=== PATIENT | female | born 1975 | race Two or more races ===

== ENCOUNTER 2018-01-30 11:22 | Inpatient (IN) | payer BC ==
[2018-01-30] MEDS ORDERED: TUBERCULIN PPD 5 TU/0.1ML SYRINGE (IN PATIENT USE ONLY) ID ONE (12:10)
[2018-01-30] MEDS ORDERED: ELECTROLYTE-148 SOLN 1,000 ML IV SCH (12:10)
[2018-01-30 12:41] VITALS: BMI 30.4
[2018-01-30 13:10] LABS: BASO % 0.6 % (0-2.0); EOS % 0.6 % (0-4.5); HEMATOCRIT 31.6 % (32.4-45.2); HEMOGLOBIN 10.9 GM/dL (10.7-15.3); LYMPH % 36.1 % (8-40); MCH 30.5 pg (25.7-33.7); MCHC 34.5 g/dl (32.0-36.0); MEAN CELL VOLUME 88.5 fl (80-96); MONO % 8.2 % (3.8-10.2); NEUT % 54.5 % (42.8-82.8); PLATELET COUNT 311 K/MM3 (134-434); RBC 3.57 M/mm3 (3.60-5.2); RDW 14.9 % (11.6-15.6); WHITE BLOOD COUNT 3.2 K/mm3 (4.0-10.0)
[2018-01-30 13:30] LABS: INR 0.93 (0.83-1.09); PROTHROMBIN TIME (PATIENT) 10.5 SEC (9.7-13.0)
[2018-01-30 13:32] LABS: ACTIVATED PTT 27.1 SECONDS (25.2-36.5)
[2018-01-30] MEDS ORDERED: OXYTOCIN 30 UNITS in 0.9% NS 30 UNIT/500 ML INFUS.BAG IVPB ONE (13:51)
[2018-01-30] MEDS ORDERED: AMPICILLIN SODIUM 2 GM VIAL ONE (13:52)
[2018-01-30] MEDS ORDERED: OXYTOCIN 30 UNITS in 0.9% NS 30 UNIT/500 ML INFUS.BAG IVPB SCH (14:00)
[2018-01-30] MEDS ORDERED: AMPICILLIN - 2 GM in SODIUM CHLORIDE 100 ML IVPB ONE (14:00)
--- NOTE | 2018-01-30 14:06 | HP ---
Past Medical History - Primary Care Physician PCP:: Yobani Nevarez - Admission Chief Complaint: 42yo P1 eith at EGA 39w 0d with fetus in breech presentation, admitted for C/S. History of Present Illness: AMA Vag GBS (+) Unstable lie- pt was examined yesterday and noted to have fetus in oblique lie with head on maternal left. The head was readily rotated to vtx and the decision was to attempt labor indx today. However, todays VE and US showed the fetus in footling breech presentation. The decision was made to proceed with a primary C/S. History Source: Patient, Medical Record Limitations to Obtaining History: No Limitations, Language Barrier (market garden worker used) - Past Medical History CHEMICAL ENGRAVER: No: Alzheimer's, CVA, Dementia, Migraine, Multiple Sclerosis, Peripheral Neuropathy, Parkinson's, Seizure, Syncope, TIA, Vertigo, Other Cardiovascular: No: AFIB, Aneurysm, Aortic Insufficiency, Aortic Stenosis, CAD, CHF, Deep Vein Thrombosis, HTN, Hyperlipdemia, NV, Mitral Insufficiency, Mitral Stenosis, Murmur, Pulmonary Hypertension, Other Pulmonary: No: Asthma, Bronchitis, Cancer, COPD, O2 Dependent, Pneumonia, Previously Intubated, Pulmonary Embolus, Pulmonary Fibrosis, Sleep Apnea, Other Gastrointestinal: No: Ascites, Cancer, Constipation, Crohn's Disease, Diverticulitis, Diverticulosis, Esophageal Varices, Gastritis, GERD, GI Bleed, Hemorrhoids, Hiatal Hernia, Inflamatory Bowel Disease, Irritable Bowel Disease, Pancreatitis, Peptic Ulcer Disease, Ulcerative Colitis, Other Hepatobiliary: No: Cirrhosis, Cholelithiasis, Cholecystitis, Choledocholithiasis , Hepatitis A, Hepatitis B, Hepatitis C, Other Renal/: No: Renal Failure, Renal Inusuff, BPH, Cancer, Hematuria, Hemodialysis , Neurogenic Bladder, Renal Calculi, UTI, Other Reproductive: Yes: Fibroids ...: 2 ...Para: 1 ...Term: 1 ...: 0 ...Spon : 0 ...Induced : 0 ...Multiple Gestation: 0 ...EDC by Sono: 02/06/18 Heme/Onc: No: Anemia, B12 Deficiency, Bleeding Disorder, Cancer, Current Chemotherapy, Current Radiation Therapy, Hemochromatosis, Hypercoaguable State, Myeloproliferative Synd, Sickle Cell Disease, Sickle Cell Trait, Thrombocytopenia, Other Infectious Disease: No: AIDS, C-Diff, Herpes Zoster, HIV, MRSA, STD's, Tuberculosis, VREF, Other Psych: No: Addictions, Anxiety, Bipolar, Depression, Panic, Psychosis, Schizophrenia, Other Musculoskeletal: No: Bursitis, Chronic low back pain, Hemiparesis, Hemiplegia, Osteoarthritis, Paraplegia, Other Rheumatology: No: Fibromyalgia, Gout, Lupus, Rheumatoid Arthritis, Sarcoidosis, Vasculitis, Other ENT: No: Allergic Rhinitis, Sinusitis, Other Endocrine: Yes: Other (PCOS) Dermatology: No: Basal Cell, Cellulitis, Eczema, Melanoma, Psoriasis, Squamous Cell, Other - Past Surgical History Past Surgical History: Yes: None Hx Myomectomy: No Hx Transabdominal Cerclage: No Additional Surgical History: D&C, hysteroscopy, polypectomy - Smoking History Smoking history: Never smoked Have you smoked in the past 12 months: No - Alcohol/Substance Use Hx Alcohol Use: No - Social History Usual Living Arrangement: Yes: With Spouse ADL: Independent History of Recent Travel: No Home Medications - Allergies Allergies/Adverse Reactions: Allergies Allergy/AdvReac Type Severity Reaction Status Date / Time No Known Allergies Allergy Verified 01/30/18 12:28 - Home Medications Home Medications: Ambulatory Orders Vitamins (Sjr) - 1 tab PO DAILY 01/30/18 Family Disease History - Family Disease History Family History: Unremarkable Review of Systems - Review of Systems Constitutional: reports: No Symptoms Eyes: reports: No Symptoms HENT: reports: No Symptoms Neck: reports: No Symptoms Cardiovascular: reports: No Symptoms Respiratory: reports: No Symptoms Gastrointestinal: reports: No Symptoms Genitourinary: reports: No Symptoms Breasts: reports: No Symptoms Reported Musculoskeletal: reports: No Symptoms Integumentary: reports: No Symptoms Neurological: reports: No Symptoms Endocrine: reports: No Symptoms Hematology/Lymphatic: reports: No Symptoms Psychiatric: reports: No Symptoms Pain Intensity: 0 Physical Exam - Maternity Vital Signs: Vital Signs Temperature 98.0 F 01/30/18 12:05 Pulse Rate 78 01/30/18 13:00 Respiratory Rate 20 01/30/18 13:00 Blood Pressure 111/56 01/30/18 13:00 O2 Sat by Pulse Oximetry (%) Constitutional: Yes: Well Nourished, No Distress, Calm Eyes: Yes: WNL, Conjunctiva Clear, EOM Intact HENT: Yes: WNL, Atraumatic, Normocephalic Neck: Yes: WNL, Supple, Trachea Midline Cardiovascular: Yes: WNL, Regular Rate and Rhythm Lungs: Clear to auscultation, Normal air movement Breast(s): Yes: WNL - Abdominal Exam/OB Fundal Height: 39 Number of Fetuses: Single Presentation: Breech Contractions: Yes Regularity: Irregular Intensity: Mild Monitor Mode: External Heart Rate (range): 120 Heart Rate Location: Midline Category: I Accelerations: Uniform Decelerations: None - Vaginal Exam/OB Vaginal Bleediing: No Speculum Exam: No Dilatation (cm): 1-2 Effacement (%): 20 Amniotic Membrane Status: Intact Presentation: Single Footling Breech Station: -4 - Physical Exam Musculoskeletal: Yes: WNL Extremities: Yes: WNL Edema: No Integumentary: Yes: WNL Deep Tendon Reflex Grade: Normal +2 ...Motor Strength: WNL Psychiatric: Yes: WNL, Alert, Oriented - Labs Lab Results: CBC, BMP 01/30/18 12:45 Hemorrhage Risk Assessment - Risk Factors Medium Risk Factors: Yes: None High Risk Factors: Yes: None Risk Score: 1 Risk Level: Medium Risk Imaging - Results Ultrasound: Other (Bedside US done and showed footling breech) Assessment/Plan 42yo P1 eith at EGA 39w 0d with fetus in footling breech presentation. The decision was made to proceed with delivery by C/S. We discussed the risks and benefits of C/S at length, including but not limited to scarring, pain, bleeding, infection, injury to underlying organs and structures , need for additional surgery to repair/treat any problems or complications, complications/injuries, etc. The pt verbalized her understanding and requested to proceed with surgery. The pt is aware that all surgeries have risks and no guarantees can be provided.
[2018-01-30 14:32] LABS: ANION GAP 13 (8-16); BLOOD UREA NITROGEN 7 mg/dL (7-18); CALCIUM 9.1 mg/dL (8.5-10.1); CHLORIDE 109 mmol/L (98-107); CO2 20 mmol/L (21-32); CREATININE 0.4 mg/dL (0.55-1.02); GLUCOSE,RANDOM 83 mg/dL (74-106); SODIUM 142 mmol/L (136-145)
[2018-01-30] MEDS ORDERED: AMPICILLIN SODIUM 1 GM VIAL ONE (17:46)
[2018-01-30] MEDS ORDERED: AMPICILLIN - 1 GM in SODIUM CHLORIDE 100 ML IVPB SCH (18:00)
[2018-01-30] MEDS ORDERED: CITRIC ACID/SODIUM CITRATE 30 ML UNIT-DOSE CUP PO ONE (18:25)
[2018-01-30] MEDS ORDERED: METOCLOPRAMIDE HCL INJECTION 10 MG/2 ML VIAL ONE (18:37)
[2018-01-30] MEDS: METOCLOPRAMIDE HCL INJECTION 10 MG/2 ML VIAL IVPUSH STA ×2 (18:40→22:50)
[2018-01-30] MEDS ORDERED: ceFAZolin SODIUM 1 GM VIAL ONE (19:01)
[2018-01-30] MEDS ORDERED: morphine SULFATE/Preservative Free 0.5 MG/ML (1cc Syringe) ONE (19:01)
[2018-01-30] MEDS ORDERED: ONDANSETRON 4 MG/2 ML VIAL IVPUSH PRN (19:29)
[2018-01-30] MEDS ORDERED: OXYTOCIN 10 UNITS/ML VIAL ONE (20:05)
[2018-01-30] MEDS ORDERED: morphine SULFATE/Preservative Free 0.5 MG/ML (1cc Syringe) SPIN ONE (20:15)
[2018-01-30 20:58] LABS: ARTERIAL BLOOD GAS BASE EXCESS -6.5 meq/l (-2-2); ARTERIAL BLOOD GAS PCO2 39.3 mmHg (35-45); ARTERIAL BLOOD GAS pH 7.31 (7.35-7.45)
[2018-01-30] MEDS ORDERED: SENNOSIDES/DOCUSATE COMBO (SENNA PLUS) TABLET (UD) PO PRN (21:00)
[2018-01-30] MEDS ORDERED: IBUPROFEN 800 MG/8 ML IJ IVPB PRN (21:00)
[2018-01-30] MEDS ORDERED: BENZOCAINE 20% 57 GM BOTTLE TP PRN (21:00)
[2018-01-30] MEDS ORDERED: METHYLERGONOVINE MALEATE 0.2 MG/1 ML AMP IM PRN (21:00)
[2018-01-30] MEDS ORDERED: oxyCODONE HCL 5 MG TABLET PO PRN ×2 (21:00)
[2018-01-30] MEDS ORDERED: WITCH HAZEL 50% (TUCKS) 40 PAD/JAR PAD TP PRN (21:00)
[2018-01-30] MEDS ORDERED: OXYTOCIN 20 UNITS in 0.9% NS 20 UNIT/1,000 ML INFUS.BAG IV SCH (21:00)
[2018-01-30] MEDS ORDERED: BENZOCAINE 28 GM HEMORRHOIDAL OINTMENT TP PRN (21:00)
[2018-01-30 21:03] LABS: VENOUS PC02 38.4 mmHg (38-52); VENOUS PH 7.35 (7.32-7.42); VENOUS PO2 29.5 mmHg (28-48)
[2018-01-30 21:04] LABS: ARTERIAL BLOOD GAS PO2 22.6 mmHg (80-100)
[2018-01-30 21:05] LABS: ARTERIAL BLD GAS O2 SATURATION 44.7 % (90-98.9)
--- NOTE | 2018-01-30 21:23 | OP ---
Operative Note - Note: Operative Date: 01/30/18 Pre-Operative Diagnosis: at EGA 39wks and fetus in breech lie Operation: Primary LT C/S Findings: Live baby girl in transverse (back down) lie, no meconium in amniotic fluid. Multiple small fibroids. Normal tubes, ovaries Surgeon: Yobani Nevarez Correctional Corporal: Angela Burns Anesthesiologist/EMERGENCY DEPARTMENT TECHNICIAN: Fermin Ramirez (Dr. Sprague) Anesthesia: Spinal Specimens Removed: Placenta, fragments of b/l Fallopian tubes Estimated Blood Loss (mls): 1,000 Drains & Tubes with Location: Mendes cath Drains, Volume Out (mls): 100 Blood Volume Replaced (mls): 0 Fluid Volume Replaced (mls): 2,400 Operative Report Dictated: Yes
[2018-01-30] MEDS: DEXTROSE 5%-LACTATED RINGERS 1,000 ML IV SCH (22:50)
--- NOTE | 2018-01-30 23:46 | OP ---
DATE OF OPERATION: 01/30/2018 PREOPERATIVE DIAGNOSIS: at estimated gestational age of 39 weeks, advanced maternal age, fetus in breech lie. POSTOPERATIVE DIAGNOSIS: at estimated gestational age of 39 weeks, advanced maternal age, fetus in transverse lie with back down, delivered. PROCEDURE: Primary low transverse section via Pfannenstiel skin incision. Bilateral tubal ligation via modified Nina method. SURGEON: Yobani Nevarez M.D. REGULATORY AFFAIRS SPEC: Angela Burns M.D. ANESTHESIOLOGIST: Fermin Ramirez M.D. and Jaquan Sprague M.D. ANESTHESIA: Spinal. COMPLICATIONS: None. PATHOLOGY: Placenta and fragments of bilateral fallopian tubes. URINE OUTPUT: 100 mL. INTRAVENOUS FLUIDS: 2400 mL of crystalloids. FINDINGS: Normal fallopian tubes and ovaries were noted bilaterally. The uterus contained multiple small myomas. Intraoperatively, the fetus was noted to be in transverse lie with back down and the delivery was complicated by difficult rotation to allow for delivery as a breech. Live baby girl was delivered with Apgars of 3, 7, and 9. Umbilical cord gases were sent. PROCEDURE: The patient was met preoperatively. Risks, benefits, and alternatives of surgery were discussed in detail. A equipment maintenance technician was also used. The patient verbalized understanding. She was brought to the OR with the IV running. The patient was placed on the surgical table in the sitting position. The spinal anesthesia was achieved without difficulty. The patient was then placed in the supine position with leftward tilt. A Mendes catheter was left to drain to gravity. The patient was prepped and draped in the usual sterile fashion. A timeout was conducted as per standard protocol. The surgeons then proceeded with the operation. A Pfannenstiel skin incision was made with the knife approximately 2 cm above the pubic symphysis . The incision was carried down to the level of fascia. The fascia was incised in the midline. The incision was extended bilaterally with Child scissors. The fascia was dissected away from the rectus muscles superiorly and inferiorly. The rectus muscles were in the midline. The peritoneum was identified and entered sharply. The peritoneal incision was extended superiorly and inferiorly. The bladder peritoneum was dissected away from the lower uterine segment. The bladder was reflected downwards. The uterus was incised transversely in the lower uterine segment. The uterine incision was extended bilaterally using bandage scissors. Clear amniotic fluid was noted. At that point, it was discovered that the baby had rotated to a transverse lie with the back down. Multiple attempts were tried to convert the fetus to breech presentation or to vertex presentation. Many attempts had failed. Finally the baby was rotated to breech presentation and delivered as a footling breech, as a breech extraction. The baby was also noted to have a true umbilical cord knot which was tight. The umbilical cord was clamped and cut. The baby was handed immediately to the waiting cuff presser. A segment of the umbilical cord was secured for umbilical cord gas. The placenta was delivered manually without complication. The uterus was cleared of all clots and debris. The uterine incision was repaired using a 0 Biosyn suture in a running, locking stitch. Good hemostasis was assured. The uterine incision was then imbricated using a 0 Biosyn suture with good hemostasis and approximation. The bladder peritoneum was reapproximated using a 0 Biosyn suture. The left fallopian tube was then identified and followed to the fimbriated end. The mid portion of the left fallopian tube was suture ligated and excised with good hemostasis. The right fallopian tube was then identified and followed to the fimbriated end. The right fallopian tube was then also suture ligated and the mid portion was excised. The uterus was examined and noted to contain multiple small fibroids. The operative site was irrigated using copious amounts of normal saline. Once the saline was aspirated, good hemostasis was noted. The abdominal peritoneum was closed using a 2-0 chromic suture in the running stitch. The rectus muscles were approximated using several interrupted 2-0 chromic sutures. The fascia was closed with a 0 Vicryl suture using a running stitch. The subcutaneous adipose tissues and Tawanna fascia were closed using several interrupted 0 Vicryl sutures to eliminate space. The skin was closed using a 4-0 Vicryl suture using a subcutaneous stitch. The patient tolerated procedure well. Sponge, lap, and needle counts were correct. Patient was transferred to recovery room in stable condition and awake. Alma [id number]
[2018-01-31] MEDS ORDERED: ceFAZolin SODIUM 1 GM VIAL ONE ×4 (02:14→17:17)
[2018-01-31] MEDS ORDERED: DEXTROSE 5%-WATER - 50 ML IVPB ONE ×4 (02:14→17:17)
[2018-01-31] MEDS: CEFAZOLIN 1 GM in DEXTROSE 5%-WATER - 50 ML IVPB SCH ×3 (02:26→17:22)
--- NOTE | 2018-01-31 08:06 | PN ---
Post Progress Note - Subjective Subjective: Patient without acute complaints. Tolerating clears, without nausea or vomiting No voiding, lee in place draining clear fluid No ambulation or flatus yet. Denies fevers or chills. Pain well controlled. No yet, however desires to breastfeed. Post Day: 1 Type of Delivery: Primary C/S Vital Signs: Vital Signs Temperature 98.7 F 01/31/18 06:00 Pulse Rate 86 01/31/18 06:00 Respiratory Rate 18 01/31/18 07:00 Blood Pressure 99/52 01/31/18 06:00 O2 Sat by Pulse Oximetry (%) 98 01/30/18 22:29 Breast Exam: Yes: Soft Uterus: Yes: Fundus Firm, Fundus below umbilicus Incision: Yes: Dressing dry and intact Abdomen/GI: Yes: Abdomen soft, Tender. No: Abdominal Distention, Passing flatus , Tolerating PO Lochia: Yes: Serosa Lochia, amount: Small Extremities: Yes: Calves non-tender. No: Edema - Labs Labs: CBC WBC 3.2 K/mm3 (4.0-10.0) L 01/30/18 12:45 RBC 3.57 M/mm3 (3.60-5.2) L 01/30/18 12:45 Hgb 10.9 GM/dL (10.7-15.3) 01/30/18 12:45 Hct 31.6 % (32.4-45.2) L 01/30/18 12:45 MCV 88.5 fl (80-96) 01/30/18 12:45 MCH 30.5 pg (25.7-33.7) 01/30/18 12:45 MCHC 34.5 g/dl (32.0-36.0) 01/30/18 12:45 RDW 14.9 % (11.6-15.6) 01/30/18 12:45 Plt Count 311 K/MM3 (134-434) 01/30/18 12:45 MPV 8.0 fl (7.5-11.1) 01/30/18 12:45 Absolute Neuts (auto) 1.7 # 01/30/18 12:45 Neutrophils % 54.5 % (42.8-82.8) 01/30/18 12:45 Lymphocytes % 36.1 % (8-40) 01/30/18 12:45 Monocytes % 8.2 % (3.8-10.2) 01/30/18 12:45 Eosinophils % 0.6 % (0-4.5) 01/30/18 12:45 Basophils % 0.6 % (0-2.0) 01/30/18 12:45 Nucleated RBC % 0 % (0-0) 01/30/18 12:45 Assessment/Plan 42 yo POD # 1 s/p primary CD + BTL, afebrile, vital signs stable, doing well 1. Continue routine postoperative care. 2. Follow up AM CBC 3. Rh positive status, no rhogam indicated. 4. Encourage ambulation and incentive spirometer use 5. Continue oral pain medication 6. She desires to breastfeed, will see surgical product sales consultant today 7. Anticipate discharge home postoperative day #3 or #4
[2018-01-31 09:01] LABS: BASO % 0.4 % (0-2.0); EOS % 0.4 % (0-4.5); HEMOGLOBIN 9.2 GM/dL (10.7-15.3); MCH 30.4 pg (25.7-33.7); MCHC 34.1 g/dl (32.0-36.0); MEAN CELL VOLUME 89.1 fl (80-96); MEAN PLT VOLUME 7.6 fl (7.5-11.1); MONO % 6.3 % (3.8-10.2); NEUT % 77.9 % (42.8-82.8); PLATELET COUNT 227 K/MM3 (134-434); RBC 3.03 M/mm3 (3.60-5.2); RDW 14.8 % (11.6-15.6)
[2018-01-31] MEDS: PRENATAL VITAMINS W/ FOLIC ACID TABLET (FP) PO SCH (10:31)
--- NOTE | 2018-01-31 11:50 | PN ---
Progress Note (short form) - Note Progress Note: Anesthesia POD#1 S/P under Spinal and Duramorph Vss,no N/V,pain is under control,legs strong. No complications to anesthesia seen. Karissa Davis MD.
[2018-01-31] MEDS: IBUPROFEN 600 MG TABLET (FP) PO PRN ×2 (13:07→17:21)
[2018-01-31] MEDS: SIMETHICONE 80 MG TAB.CHEW (FP) PO PRN ×2 (13:08→17:21)
[2018-01-31] MEDS: ACETAMINOPHEN 325 MG TABLET (FP) PO PRN (17:22)
[2018-01-31] MEDS: DEXTROSE 5%-LACTATED RINGERS 1,000 ML IV SCH (20:14)
[2018-01-31] MEDS ORDERED: BISACODYL 10 MG SUPP.RECT RC PRN (21:00)
--- NOTE | 2018-02-01 07:37 | PN ---
Progress Note (short form) - Note Progress Note: pod 2 . s/p c/s , doing well, ambulating, voids ok, passing gas CBC, BMP 01/31/18 08:45 01/30/18 12:45 Last Vital Signs Temp Pulse Resp BP Pulse Ox 98.3 F 67 18 102/64 98 01/31/18 22:00 01/31/18 22:00 01/31/18 22:00 01/31/18 22:00 01/30/18 22:29 abdomen soft, no distension, no cav incision dry, clean no calf tenderness lochia mild plan ambulate, advance diet cbc in am
[2018-02-01] MEDS: PRENATAL VITAMINS W/ FOLIC ACID TABLET (FP) PO SCH (09:10)
[2018-02-01] MEDS: SIMETHICONE 80 MG TAB.CHEW (FP) PO PRN ×2 (14:08→23:10)
[2018-02-01] MEDS: IBUPROFEN 600 MG TABLET (FP) PO PRN ×2 (14:08→23:11)
[2018-02-01] MEDS: ACETAMINOPHEN 325 MG TABLET (FP) PO PRN ×2 (14:09→23:10)
[2018-02-01] MEDS: DEXTROSE 5%-LACTATED RINGERS 1,000 ML IV SCH (15:10)
[2018-02-02 08:03] LABS: BASO % 0.7 % (0-2.0); EOS % 2.1 % (0-4.5); HEMATOCRIT 25.4 % (32.4-45.2); HEMOGLOBIN 8.9 GM/dL (10.7-15.3); LYMPH % 24.9 % (8-40); MCH 31.2 pg (25.7-33.7); MCHC 34.9 g/dl (32.0-36.0); MEAN CELL VOLUME 89.5 fl (80-96); MONO % 7.2 % (3.8-10.2); NEUT % 65.1 % (42.8-82.8); PLATELET COUNT 258 K/MM3 (134-434); RBC 2.84 M/mm3 (3.60-5.2); RDW 14.8 % (11.6-15.6); WHITE BLOOD COUNT 4.6 K/mm3 (4.0-10.0)
--- NOTE | 2018-02-02 10:07 | PN ---
Post Progress Note - Subjective Subjective: Patient without acute complaints. Reports tolerating oral intake without nausea or vomiting. Ambulating without dizziness. Denies fevers or chills. Pain well controlled with oral pain medication. without difficulty. Passing flatus. Post Day: 3 Type of Delivery: Primary C/S Vital Signs: Vital Signs Temperature 98.0 F 02/02/18 09:19 Pulse Rate 71 02/02/18 09:19 Respiratory Rate 20 02/02/18 09:19 Blood Pressure 104/51 02/02/18 09:19 O2 Sat by Pulse Oximetry (%) 98 01/30/18 22:29 Uterus: Yes: Fundus Firm Incision: Yes: Sutures intact. No: Redness, Oozing Abdomen/GI: Yes: Abdomen soft, Abdominal Distention (mild soft), Passing flatus , Tolerating PO. No: Tender Lochia: Yes: Serosa Lochia, amount: Small Extremities: Yes: Calves non-tender, Edema (trace) Activity: Ambulating - Labs Labs: CBC WBC 4.6 K/mm3 (4.0-10.0) 02/02/18 06:00 RBC 2.84 M/mm3 (3.60-5.2) L 02/02/18 06:00 Hgb 8.9 GM/dL (10.7-15.3) L 02/02/18 06:00 Hct 25.4 % (32.4-45.2) L 02/02/18 06:00 MCV 89.5 fl (80-96) 02/02/18 06:00 MCH 31.2 pg (25.7-33.7) 02/02/18 06:00 MCHC 34.9 g/dl (32.0-36.0) 02/02/18 06:00 RDW 14.8 % (11.6-15.6) 02/02/18 06:00 Plt Count 258 K/MM3 (134-434) 02/02/18 06:00 MPV 8.0 fl (7.5-11.1) 02/02/18 06:00 Absolute Neuts (auto) 3.0 # 02/02/18 06:00 Neutrophils % 65.1 % (42.8-82.8) 02/02/18 06:00 Lymphocytes % 24.9 % (8-40) D 02/02/18 06:00 Monocytes % 7.2 % (3.8-10.2) 02/02/18 06:00 Eosinophils % 2.1 % (0-4.5) D 02/02/18 06:00 Basophils % 0.7 % (0-2.0) 02/02/18 06:00 Nucleated RBC % 0 % (0-0) 02/02/18 06:00 Assessment/Plan 42 yo POD # 3 s/p primary CD + BTL, afebrile, vital signs stable, doing well 1. Continue routine postoperative care. 2. Encourage ambulation and incentive spirometer use 3. Continue oral pain medication 4. Anticipate discharge home postoperative day #4
[2018-02-02] MEDS: PRENATAL VITAMINS W/ FOLIC ACID TABLET (FP) PO SCH (10:41)
[2018-02-02] MEDS: IBUPROFEN 600 MG TABLET (FP) PO PRN ×2 (13:48→22:42)
[2018-02-02] MEDS: ACETAMINOPHEN 325 MG TABLET (FP) PO PRN ×2 (13:49→22:43)
[2018-02-02] MEDS: SIMETHICONE 80 MG TAB.CHEW (FP) PO PRN ×2 (13:49→22:42)
[2018-02-02 21:12] VITALS: PULSE 66
[2018-02-02] MEDS: FERROUS SO4 325 MG TABLET (FP) PO SCH (22:42)
[2018-02-03 07:50] VITALS: BP 101/71; TEMP 97.9
--- NOTE | 2018-02-03 08:29 | PN ---
Post Progress Note - Subjective Subjective: Patient without acute complaints. Reports tolerating oral intake without nausea or vomiting. Ambulating without dizziness. Denies fevers or chills. Pain well controlled with oral pain medication. without difficulty. Passing flatus. Post Day: 4 Type of Delivery: Primary C/S Vital Signs: Vital Signs Temperature 97.9 F 02/03/18 07:49 Pulse Rate 66 02/03/18 07:49 Respiratory Rate 18 02/03/18 07:49 Blood Pressure 101/71 02/03/18 07:49 O2 Sat by Pulse Oximetry (%) 98 01/30/18 22:29 Breast Exam: Yes: Soft Uterus: Yes: Fundus Firm, Fundus below umbilicus Incision: Yes: Sutures intact. No: Redness, Oozing Abdomen/GI: Yes: Abdomen soft, Abdominal Distention (mild soft), Tender (mild incisional ), Passing flatus, Tolerating PO Lochia: Yes: Serosa Lochia, amount: Small Extremities: Yes: Calves non-tender. No: Edema Activity: Ambulating - Labs Labs: CBC WBC 4.6 K/mm3 (4.0-10.0) 02/02/18 06:00 RBC 2.84 M/mm3 (3.60-5.2) L 02/02/18 06:00 Hgb 8.9 GM/dL (10.7-15.3) L 02/02/18 06:00 Hct 25.4 % (32.4-45.2) L 02/02/18 06:00 MCV 89.5 fl (80-96) 02/02/18 06:00 MCH 31.2 pg (25.7-33.7) 02/02/18 06:00 MCHC 34.9 g/dl (32.0-36.0) 02/02/18 06:00 RDW 14.8 % (11.6-15.6) 02/02/18 06:00 Plt Count 258 K/MM3 (134-434) 02/02/18 06:00 MPV 8.0 fl (7.5-11.1) 02/02/18 06:00 Absolute Neuts (auto) 3.0 # 02/02/18 06:00 Neutrophils % 65.1 % (42.8-82.8) 02/02/18 06:00 Lymphocytes % 24.9 % (8-40) D 02/02/18 06:00 Monocytes % 7.2 % (3.8-10.2) 02/02/18 06:00 Eosinophils % 2.1 % (0-4.5) D 02/02/18 06:00 Basophils % 0.7 % (0-2.0) 02/02/18 06:00 Nucleated RBC % 0 % (0-0) 02/02/18 06:00 Assessment/Plan 42 yo POD # 4 s/p primary CD + BTL, afebrile, vital signs stable, doing well 1. Patient stable for discharge home today. 2. Patient encouraged to contact MD for: - Severe pain not controlled by oral pain medication - Fevers or chills - Nausea or vomiting, intolerance of oral intake - Incision redness, tenderness or discharge 3. Patient to follow up in office in 1-2 weeks for incision check, 4-6 weeks for visit
--- NOTE | 2018-02-03 08:51 | DS ---
Physical Exam-PEPPER CUTTER Vital Signs: Vital Signs Temperature 97.9 F 02/03/18 07:49 Pulse Rate 66 02/03/18 07:49 Respiratory Rate 18 02/03/18 07:49 Blood Pressure 101/71 02/03/18 07:49 O2 Sat by Pulse Oximetry (%) 98 01/30/18 22:29 Labs: CBC, BMP 02/02/18 06:00 01/30/18 12:45 Delivery - Delivery Type of Anesthesia: Spinal Episiotomy/Laceration: None EBL (cc): 1,000 Delivery, Single - Stages of Labor Date 1st Stage Initiatied: 01/30/18 Time 1st Stage Initiated: 11:00 Date of Delivery: 01/30/18 Time of Delivery: 20:10 Time Placenta Delivered: 20:11 - Condition of Cloud Systems Architect/Director Of Residence Life Present: Yes Name: Ignacio Dalal Infant Gender: Female Weight: 7 lb 13 oz Total Hours ROM (Hrs/Mins): 11mins. - 1 Minute Total Score: 3 5 Minutes Total Score: 7 10 Minutes Total Score: 9 - [place] Feeding Plan Initial Plan: Exclusive throughout hospitalization Discharge Summary Reason For Visit: INDUCTION OF LABOR Current Active Problems Anemia (Acute) delivery delivered (Acute) Procedures: Principal: Delivery Hospital Course: Patient was admitted for routine delivery POD # 1 patient ambulated, voiding, passing gas, tolerating oral intake and with adequate pain control. Noted to have mild asymptomatic anemia She fulfilled all criteria for discharge POD #4 Condition: Good - Instructions Diet, Activity, Other Instructions: Return to MD office in 1-2 weeks, call office for an appointment. Physical activity Resume your normal everyday activity as tolerated no heavy lifting or exercise until seen by your surgeon. You may walk unlimited milton of and climb stairs. You may resume driving the car when you feel safe and comfortable behind the wheel. No sexual activity as instructed. Wound care If you have a bandage, leave it on, and keep dry for 48-72 hours. After that time discard the outer bandage. If they are tapes on the skin under the out of bandage leave them in place. They will peel off in the next 7 to 10 days. Do Not Peel them off. You may shower the day after surgery. If there are tapes present on the skin, you may shower over them. Diet There are no dietary restrictions. Eat healthy, high-fiber foods. Drink 6 to 8 glasses of liquid each day. This will assist in keeping your bowels are regular. Pain management You may take Tylenol or acetaminophen or Ibuprofen (for example, Motrin, Advil etc.) from my pain prescription medication is ordered should be taken as prescribed for moderate to severe pain. Call MD for any of the following: Severe pain not relieved by medication Fever of 101 or higher Excessive bleeding or drainage on dressing Inability to urinate [facility] Reference #: [id number] Referrals: Yobani Nevarez MD [Staff Physician] - Disposition: HOME - Home Medications Comprehensive Discharge Medication List: Ambulatory Orders Vitamins (Sjr) - 1 tab PO DAILY 01/30/18 Ibuprofen [Motrin -] 600 mg PO QID #60 tablet 02/03/18 Oxycodone HCl/Acetaminophen [Percocet 5-325 mg Tablet -] 1 tab PO Q6H #20 tab MDD 4 02/03/18
[2018-02-03] MEDS: IBUPROFEN 600 MG TABLET (FP) PO PRN (09:10)
[2018-02-03] MEDS: PRENATAL VITAMINS W/ FOLIC ACID TABLET (FP) PO SCH (09:10)
[2018-02-03] MEDS: SIMETHICONE 80 MG TAB.CHEW (FP) PO PRN (09:11)
[2018-02-03] MEDS: FERROUS SO4 325 MG TABLET (FP) PO SCH (09:11)
[2018-02-03] MEDS: ACETAMINOPHEN 325 MG TABLET (FP) PO PRN (09:11)
--- NOTE | 2018-02-08 17:42 | PATH ---
Surgical Pathology Report Patient Name: DELMA AGUILAR [facility]. Rec. #: [id number] /Age/Gender: 1975 (Age: 42) / F Account: [id number] Location: [facility] OBS/LARD RENDERER Taken: 01/30/2018 Received: 01/31/2018 Reported: 02/08/2018 Physicians: Yobani Nevarez M.D. Specimen(s) Received A: PLACENTA B: LEFT FALLOPIAN TUBE C: RIGHT FALLOPIAN TUBE Clinical History Final Diagnosis A. PLACENTA, SECTION: 395 g THIRD TRIMESTER PLACENTA WITH TRIVASCULAR UMBILICAL CORD AND UNREMARKABLE PLACENTAL MEMBRANES. B. FALLOPIAN TUBE, LEFT, PARTIAL EXCISION: FALLOPIAN TUBE WITH FOCAL SUBEPITHELIAL DECIDUAL REACTION. FULL LUMINAL PORTION IDENTIFIED. C. FALLOPIAN TUBE, RIGHT, PARTIAL EXCISION: FALLOPIAN TUBE WITH SUBEPITHELIAL DECIDUAL REACTION. FULL LUMINAL PORTION IDENTIFIED. Electronically Signed Marlen Martinez M.D. Gross Description A. The specimen is received fresh labeled placenta and is a 395 gram, 13.5 x 15.0 x 2.9 cm. placenta with attached membranes and umbilical cord. The attached membranes are suárez, translucent with focal opacities and insert marginally. The umbilical cord measures 23 cm. in length and averages 0.9 cm. in diameter. The cord inserts eccentrically, 4 cm. to the nearest margin. No true knots or strictures are identified. Cut surface of the umbilical cord reveals 3 vessels. The surface is lima-blue with minimal fibrin deposition and appropriate caliber vessels. The maternal surface is red-brown with focal defects. Sectioning reveals red-brown, spongy parenchyma. No lesions are identified. Criminal Justice Program Director sections are submitted in three cassettes as follows: 1- membrane rolls and umbilical cord; 2-3- full thickness sections of placenta. B. Received in formalin labeled "portion of left fallopian tube," is a 1.5 cm in length portion of fallopian tube. No fimbria are present. The outer surface is suárez-morillo and smooth. Sectioning reveals an unremarkable lumen. Criminal Justice Program Director sections are submitted in one cassette. C. Received in formalin labeled "portion of right fallopian tube," is a 1.8 cm in length portion of fallopian tube. No fimbria are present. The outer surface is suárez-morillo and smooth with a 0.5 cm in greatest dimension attached paratubal cyst. Sectioning reveals an unremarkable fallopian tube lumen. Criminal Justice Program Director sections including the paratubal cyst are submitted in one cassette. 02/07/201802/07/2018
== END 2018-02-03 12:00 | disposition home or self-care (01) | DRG 766 ==
LOC: JLDR 11:22 → J3W 22:45
PROVIDERS: ADMIT Obstetrics & Gynecology; ATTEND Obstetrics & Gynecology
PROC: 10D00Z1 Extraction of Products of Conception, Low, Open Approach (ICD-10-PCS; principal; 2018-01-30)
PROC: 0UB70ZZ Excision of Bilateral Fallopian Tubes, Open Approach (ICD-10-PCS; 2018-01-30)
DX: O32.1XX0 Maternal care for breech presentation, not applicable or unspecified (principal); O34.13 Maternal care for benign tumor of corpus uteri, third trimester; Z3A.39 39 weeks gestation of pregnancy; Z37.0 Single live birth; Z30.2 Encounter for sterilization
CPT/HCPCS: 36415; 36600; 80048; 82803; 85025; 85610; 85730; 86593; 86850; 86900; 86901; 88302-TC; 88307-TC

== ENCOUNTER 2024-06-02 04:37 | Day surgery (SDC) | payer BC ==
[2024-05-28 17:11] VITALS: BMI 29.0
[2024-06-02] MEDS ORDERED: oxyCODONE HCL 5 MG TABLET PO PRN ×2 (11:46)
[2024-06-02] MEDS ORDERED: ONDANSETRON 4 MG/2 ML VIAL IVPUSH PRN (11:46)
[2024-06-02] MEDS ORDERED: LACTATED RINGERS SOLUTION 1,000 ML IV SCH (12:00)
[2024-06-02] MEDS ORDERED: PROPOFOL 40 ML ONE (12:00)
[2024-06-02] MEDS ORDERED: DEXAMETHASONE SOD PHOSPHATE 4 MG/1 ML VIAL ONE (12:00)
[2024-06-02] MEDS ORDERED: MIDAZOLAM HCL 2 MG/2 ML SINGLE DOSE VIAL ONE (12:00)
[2024-06-02] MEDS: ceFAZolin SODIUM 1 GM VIAL IVPB ONE (13:00)
[2024-06-02] MEDS ORDERED: ceFAZolin SODIUM 1 GM VIAL ONE ×2 (13:08)
[2024-06-02 15:15] VITALS: RESP 18
[2024-06-02 16:06] VITALS: BP 98/52; PULSE 78; TEMP 97.5
== END 2024-06-02 16:00 | disposition home or self-care (01) ==
LOC: JASU-SURG 04:37
PROVIDERS: ATTEND Obstetrics & Gynecology
PROC: 0UB98ZZ Excision of Uterus, Via Natural or Artificial Opening Endoscopic (ICD-10-PCS; principal; 2024-06-02 12:00)
DX: N84.0 Polyp of corpus uteri (principal)
CPT/HCPCS: 81025; 86850; 86900; 86901; 88305-TC; 94760